=== PATIENT | female | born 1975 | race Caucasian/White ===

== ENCOUNTER 2019-10-03 09:49 | Inpatient (IN) | payer OTHER ==
[~2019-10-03 09:49] MED LIST: Bupivacaine 0.5% 50 ML MDV ONE; Lidocaine 1% with EPINEPHrine 1:100,000 50 ML MDV ONE; Meropenem 500 MG SDV ONE
[2019-10-03] MEDS ORDERED: Succinylcholine 200 MG/10 ML MDV ONE (10:12)
[2019-10-03] MEDS ORDERED: Ondansetron 4 MG/2 ML SDV ONE (10:12)
[2019-10-03] MEDS ORDERED: Glycopyrrolate 0.2 MG/ML 5 ML MDV ONE (10:12)
[2019-10-03] MEDS ORDERED: Rocuronium 50 MG/5 ML Vial ONE (10:12)
[2019-10-03] MEDS ORDERED: Propofol 200 MG/20 ML SDV ONE (10:12)
[2019-10-03] MEDS ORDERED: Neostigmine Methylsulfate 1 MG/ML 5 ML Syringe ONE (10:12)
[2019-10-03] MEDS ORDERED: Dexamethasone 4 MG/ML SDV ONE (10:12)
[2019-10-03] MEDS ORDERED: fentaNYL 250 MCG/5 ML SDV ONE ×2 (10:14→12:12)
[2019-10-03 10:27] LABS: HEMOGLOBIN A1C 5.7 % (4.5-6.2)
[2019-10-03] MEDS ORDERED: Acetaminophen 500 MG Tab PO ONE (10:30)
[2019-10-03] MEDS ORDERED: Celecoxib 200 MG Cap PO ONE (10:30)
[2019-10-03] MEDS ORDERED: Scopolamine 1.5 MG Transdermal Patch TOP SCH (10:30)
[2019-10-03] MEDS ORDERED: Gabapentin 300 MG Cap PO ONE (10:30)
[2019-10-03] MEDS ORDERED: Dextrose 5%-Lactated Ringers 1,000 ML IV SCH ×2 (11:15→15:15)
[2019-10-03] MEDS ORDERED: cefOXitin 2 GM in Sodium Chloride 0.9% 50 ML IV ONE (11:45)
[2019-10-03] MEDS ORDERED: Ropivacaine 34 ML, dexAMETHasone 8 MG, EPINEPHrine 0.4 MG, Sodium Chloride 0.9% 43.6 ML NERVRT SCH ×4 (12:00)
[2019-10-03] MEDS ORDERED: Magnesium Sulfate 2 GM in Sodium Chloride 0.9% 100 ML IV SCH (12:00)
[2019-10-03] MEDS ORDERED: MAGNESIUM SULFATE IV ONE (12:00)
[2019-10-03] MEDS ORDERED: Ketamine 500 MG/5 ML MDV IV SCH (12:00)
[2019-10-03] MEDS ORDERED: SODIUM CHLORIDE 0.9% IV ONE (12:00)
[2019-10-03] MEDS ORDERED: Ketamine 50 MG in Sodium Chloride 0.9% 49.5 ML IV SCH (12:00)
[2019-10-03] MEDS ORDERED: fentaNYL 100 MCG/2 ML SDV IVPUSH ONE (13:37)
[2019-10-03] MEDS ORDERED: hydrOXYzine HCL 100 MG/2 ML SDV IM ONE (13:38)
[2019-10-03] MEDS ORDERED: Acetaminophen 500 MG Tab PO PRN (15:05)
[2019-10-03] MEDS ORDERED: Insulin Lispro 100 Unit/ML 3 ML KwikPen SUBCUT PRN (15:05)
[2019-10-03] MEDS ORDERED: diphenhydrAMINE 50 MG/ML SDV IVPUSH PRN (15:05)
[2019-10-03] MEDS ORDERED: Labetalol 20 MG/4 ML Syringe IVPUSH PRN (15:05)
[2019-10-03] MEDS ORDERED: HYDROmorphone 1 MG/ML Syringe IV PRN (15:05)
[2019-10-03] MEDS ORDERED: Glucagon,Human Recombinant 1 MG Vial IM PRN (15:05)
[2019-10-03] MEDS ORDERED: Calcium Gluconate 10% 1 GM/10 ML SDV IVPUSH PRN (15:05)
[2019-10-03] MEDS ORDERED: Ondansetron 4 MG/2 ML SDV IVPUSH PRN (15:05)
[2019-10-03] MEDS ORDERED: Metoclopramide 10 MG/2 ML SDV IVPUSH PRN (15:05)
[2019-10-03] MEDS ORDERED: Cyclobenzaprine 10 MG Tab PO PRN (15:05)
[2019-10-03] MEDS ORDERED: 50% Dextrose in Water 50 ML Syringe IVPUSH PRN (15:05)
[2019-10-03] MEDS ORDERED: Lactated Ringers 1,000 ML IV SCH (15:15)
[2019-10-03] MEDS ORDERED: MVI, Adult with Vitamin K 10 ML, Thiamine 200 MG, Chromium/Copper/Mang/Selen/Zn 1 ML in... IV SCH ×4 (16:00)
[2019-10-03] MEDS: Venlafaxine 75 MG Tab PO SCH (16:46)
[2019-10-03] MEDS: oxyCODONE 5 MG Tab PO PRN (16:53)
[2019-10-03] MEDS ORDERED: Venlafaxine 75 MG Cap.ER PO SCH (17:00)
[2019-10-03] MEDS ORDERED: Pantoprazole 40 MG Vial IVPUSH SCH (18:00)
[2019-10-03] MEDS: cefOXitin 2 GM in Sodium Chloride 0.9% 50 ML IV SCH (18:14)
[2019-10-03] MEDS: Acetaminophen 500 MG Tab PO SCH (18:14)
[2019-10-03] MEDS: HYDROmorphone 0.5 MG/0.5 ML Syringe IVPUSH PRN ×2 (20:26→22:51)
[2019-10-03] MEDS: Heparin Sodium 5,000 Units/ML Vial SUBCUT SCH (20:30)
[2019-10-03] MEDS: Baclofen 10 MG Tab PO SCH (20:33)
[2019-10-03] MEDS: Gabapentin 300 MG Cap PO SCH (20:33)
[2019-10-03] MEDS: Metoprolol Tartrate 25 MG Tab PO SCH (20:35)
[2019-10-03] MEDS ORDERED: traZODone 50 MG Tab PO SCH (21:00)
[2019-10-03] MEDS: hydrOXYzine HCL 100 MG/2 ML SDV IM PRN (21:28)
[2019-10-04] MEDS: cefOXitin 2 GM in Sodium Chloride 0.9% 50 ML IV SCH ×2 (00:55→05:42)
[2019-10-04] MEDS: oxyCODONE 5 MG Tab PO PRN (01:01)
[2019-10-04] MEDS: Acetaminophen 500 MG Tab PO SCH ×2 (01:02→09:56)
[2019-10-04] MEDS ORDERED: Iopamidol 612 MG/ML 50 ML SDV PO STA (03:14)
[2019-10-04] MEDS: HYDROmorphone 0.5 MG/0.5 ML Syringe IVPUSH PRN (03:25)
[2019-10-04] MEDS: hydrOXYzine HCL 100 MG/2 ML SDV IM PRN (04:30)
[2019-10-04] MEDS ORDERED: Insulin Lispro 100 Unit/ML 3 ML KwikPen SUBCUT PRN ×2 (07:18→07:22)
[2019-10-04] MEDS ORDERED: Ondansetron 4 MG Tab.DIS PO PRN (07:18)
[2019-10-04] MEDS: Venlafaxine 75 MG Tab PO SCH ×2 (07:21→12:45)
[2019-10-04] MEDS: Heparin Sodium 5,000 Units/ML Vial SUBCUT SCH (07:22)
[2019-10-04] MEDS ORDERED: Potassium Chloride Riders 40 MEQ in Premix Bag 1 BAG IV ONE (07:22)
[2019-10-04] MEDS ORDERED: Levothyroxine 88 MCG Tab PO SCH (07:30)
[2019-10-04] MEDS: HYDROmorphone 2 MG Tab PO PRN ×2 (07:56→13:34)
[2019-10-04] MEDS ORDERED: metFORMIN 500 MG Tab PO SCH (08:00)
[2019-10-04] MEDS: Metoprolol Tartrate 25 MG Tab PO SCH (08:07)
[2019-10-04] MEDS: Baclofen 10 MG Tab PO SCH ×2 (08:07→13:36)
[2019-10-04] MEDS: Gabapentin 300 MG Cap PO SCH ×2 (08:08→13:37)
[2019-10-04] MEDS ORDERED: Fluticasone Propionate Nasal Spray 16 GM Bottle NASBOTH SCH (09:00)
[2019-10-04] MEDS ORDERED: Aspirin 325 MG Tab.EC PO SCH (09:00)
[2019-10-04] MEDS ORDERED: Celecoxib 200 MG Cap PO SCH (09:00)
[2019-10-04] MEDS ORDERED: Loratadine 10 MG Tab PO SCH (09:00)
--- NOTE | 2019-10-04 09:10 | CR ---
UGI CLINICAL HISTORY: Status post gastric bypass abdominal pain FINDINGS: Patient swallowed water-soluble contrast. Patient is status post gastrectomy. There is no evidence of extravasation at the gastric remanent. There is no obstruction Impression: No evidence of obstruction or leakage I
--- NOTE | 2019-10-04 09:32 | PN ---
DATE OF SERVICE: 10/04/2019 SUBJECTIVE: Duyen is postoperative day #1. Pain has been controlled. She has been up walking x2. Upper GI was normal. Oral intake 1450. Urine output 1750. REVIEW OF SYSTEMS: Remainder of review of systems negative for any pertinent positives and negatives. OBJECTIVE: GENERAL: Duyen is a pleasant 44-year-old female, alert, orientated. VITAL SIGNS: TPR 97.6, 50, 16, blood pressure 106/62. HEENT: Negative. NECK: Supple. HEART: Regular rate and rhythm. LUNGS: Clear. ABDOMEN: Dressings dry and intact. Abdominal binder is on. EXTREMITIES: Without peripheral edema. ASSESSMENT: Exploratory laparotomy with: 1. Reduction of small bowel volvulus and closure of internal hernia. 2. Small-bowel resection. 3. Separate enterostomy for reestablished Angelica-en-Y small bowel anatomy. 4. Excision of elongated partial nodule base of mesentery. 5. Placement of Interceed mesh. PLAN: 1. Discontinue D5LR IV. 2. Continue lactated Ringer's at 100 mL per hour. 3. Dilaudid 2 to 4 mg every 4 hours p.r.n. pain orally. 4. Step 3 gastric bypass diet. 5. KCl 40 mEq IV 1 time for potassium of 3.5. 6. Order Accu-Cheks and insulin as prescribed. Postoperatively, order was missed. 7. Call Jacky Norris MD, with results of Accu-Cheks. 8. Good pulmonary toilet. 9. We will evaluate p.r.n. or in a.m. Darcy Limon PA-C /[id number]
[2019-10-04] MEDS: Potassium Chloride 20 MEQ, Lidocaine 1% 2 ML in Sodium Chloride 0.9% 100 ML IV SCH ×2 (09:57→12:38)
[2019-10-04] MEDS ORDERED: Pantoprazole 40 MG Delayed-Release Granules 1 Packet PO SCH (16:30)
--- NOTE | 2019-10-05 02:51 | DISCH ---
ADMISSION DIAGNOSES: Partial small bowel obstruction, postprandial diabetes, single-port Angelica-en-Y gastric bypass surgery, unspecified surgical malabsorption, B12 deficiency, vitamin D deficiency, diabetes type 2, chronic pain with chronic narcotic use, essential hypertension, general anxiety disorder, coronary artery disease. DISCHARGE DIAGNOSES: Exploratory laparotomy with: 1. Reduction of small bowel volvulus and closure of internal hernia. 2. Small bowel resection. 3. Separate enterostomy for reestablished Angelica-en-Y small bowel anatomy. 4. Excision of elongated partial nodule of mesentery. 5. Placement of Interceed mesh for partial small bowel obstruction secondary to small bowel volvulus and intussusception at the jejunojejunostomy. Elongated nodule at the base of mesentery 5.2 cm, separate small bowel stricture near the jejunojejunostomy. HISTORY: Duyen is a 44-year-old female with partial small bowel obstruction. After preoperative evaluation and discussion of possible risks and possible complications, she wished to proceed with surgical procedure. HOSPITAL COURSE: Duyen had her surgery on 10/03/2019. She had no operative complications. On postop day 1, her upper GI was normal. Oral intake adequate. Pain was controlled. Activity good. Vital signs were stable and she was able to be discharged to home. PHYSICAL EXAMINATION: GENERAL: Duyen is a 44-year-old female. VITAL SIGNS: Height is 5 feet 5.75 inches, weight is 154 pounds. TPR is 98, 171, 16, blood pressure 142/76. HEENT: Negative. NECK: Supple. HEART: Regular rate and rhythm. LUNGS: Clear. ABDOMEN: Aquacel dressing is on. Abdominal binder is on. EXTREMITIES: Without peripheral edema. DISPOSITION: Discharged to home. CONDITION: Stable and improving. FOLLOWUP: Followup appointment with Darcy Limon PA-C, on 10/16/2019 at 10 a.m. MEDICATIONS: New prescription, Celebrex 200 mg oral b.i.d., #28. She is to resume home medications: 1. Percocet 7.5 mg 1 tablet oral every 4 hours p.r.n. pain. 2. Aspirin 325 mg oral daily. 3. Baclofen 20 mg oral 3 times a day. 4. FiberCon 625 mg oral daily. 5. Amy 180 mg oral twice daily. 6. Flonase 2 sprays in each nostril once daily. 7. Neurontin 600 mg oral 3 times a day. 8. Probiotic 1 tablet daily. 9. Levothyroxine 88 mcg oral before breakfast. 10.Magnesium oxide 400 mg oral daily. 11.Metoprolol 12.5 mg oral every 12 hours. 12.Protonix 40 mg oral twice daily. 13.Chantix 1 tablet oral as directed. 14.Effexor 75 mg 3 times daily. 15.Metformin 1000 mg oral with breakfast. 16.Trazodone 100 mg at bedtime. DIET: Step 3 gastric bypass diet for 2 weeks. Drink 8 to 10 glasses of water a day. ACTIVITY: No lifting greater than 10 pounds for 6 weeks. Walk at least 6 times daily inside your home. Driving: Do not drive for 1 week and while on narcotic pain medication. Shower/bathing: May shower. DISCHARGE INSTRUCTIONS: Notify provider if any fever, increased pain, nausea, vomiting. Keep site clean and dry. Wear abdominal binder for 6 weeks and then p.r.n. Use incentive spirometer 10 times every hour while awake for 1 week.
[2019-10-05] MEDS ORDERED: Cyanocobalamin (Vitamin B12) 1,000 MCG/ML SDV IM ONE (09:00)
--- NOTE | 2019-10-07 13:59 | OR ---
DATE OF PROCEDURE: 10/03/2019 SURGEON: Jacky Norris MD PREOPERATIVE DIAGNOSIS: Partial small bowel obstruction. POSTOPERATIVE DIAGNOSES: 1. Partial small bowel obstruction secondary to small bowel volvulus and intussusception at jejunojejunostomy. 2. Elongated peritoneal nodule at base of mesentery (5.2 cm). 3. Separate small bowel stricture near the origin of the jejunojejunostomy. PROCEDURES PERFORMED: Exploratory laparotomy with: 1. Reduction of small bowel volvulus and closure of internal hernia (83414). 2. Small bowel resection (08438). 3. Separate enteroenterostomy for re-establishment of Angelica-en-Y small bowel anatomy (41127). 4. Excision of elongated peritoneal nodule at base of mesentery (61339). 5. Placement of Interceed mesh to limit recurrent adhesion formation between pelvic and abdominal wall and underlying viscera (49941). ANESTHESIA: General. PRAWN TRAWLER HAND: Darcy Limon PA-C INDICATION FOR PROCEDURE: This is a 44-year-old female presenting with a picture of partial small-bowel obstruction, status post previous Angelica-en-Y gastric bypass. Plan is to proceed with limited laparotomy with reduction of any volvulus that might be identified, lysis of adhesions with some small bowel resection as indicated. Potential risks of the procedure including bleeding, infection, leaks from various GI tract closures, recurrence of problem over time were all reviewed, and the patient wishes to proceed. DETAILS OF PROCEDURE: The patient was taken to the operating room. After general endotracheal anesthesia was induced, a Hernández catheter was inserted, and the abdomen was prepped and draped. A midline incision from the umbilicus roughly a handsbreadth toward the xiphoid was made and carried down through the full-thickness abdominal wall and peritoneal cavity entered. Upon entering the peritoneal cavity, the patient was noted to have a focal small volvulus involving the significant portion of small bowel prolapsing underneath the leaves of the enteroenterostomy. As this was reduced, the enteroenterostomy was noted to be quite dilated consistent with probable recurrent intussusception. There was also a narrowing of the small bowel as it entered the anastomosis at the level of the Angelica limb likely related to longstanding distortion of its configuration related to the volvulus. There was also noted to be an elongated peritoneal nodule at the base of the mesentery extending upward toward the jejunojejunostomy. This measured 5.2 cm and was excised at this point. The decision was made to resect the jejunojejunostomy. Three components were then divided with JUVENAL staplers as was the underlying mesentery where it had been the end of the biliopancreatic limb was anastomosed what had been beginning of the common limb with a side- to-side enteroenterostomy with internal firing of Endo-JUVENAL 60 mm stapler. Common opening was closed transversely with the same stapler and angles anastomosed, and mesenteric defect approximated with some 3-0 Vicryl stitch. The small bowel continuity was then reconstructed with a separate enteroenterostomy roughly 20 cm distal to the original anastomosis. This was continue to the end of the Angelica limb with the same sequence of stephen. In this case, the mesenteric defect was closed with a 2-0 silk stitch to provide some permanency. At that point, no further problems noted. Abdomen irrigated with antibiotic-containing saline solution. Bilateral transversus abdominis plane blocks were placed, and to limit recurrent adhesion formation, Interceed mesh was placed underneath the incision, from there down toward the pelvis, and the midline fascia was then approximated with #2 Vicryl stitch. This area was then anesthetized with 0.5% Marcaine and incision closed with some 3-0 and 4-0 Vicryl stitch deep and stephen for the skin. Dressing was applied. The patient was taken to the recovery room in satisfactory condition. Physician drilling assistant, Darcy Limon, played an essential role in assisting in this case, helping to position the patient, retract structures as needed, as well as suturing and cutting sutures when indicated. Her presence improved patient safety and decreased operative time. Jacky Norris MD /[id number]
== END 2019-10-04 15:00 | disposition home or self-care (01) | DRG 326 ==
LOC: JP.SDSSCHI 09:49 → JP.SDS 09:50 → EDSTATUS 11:45 → JP.MS 13:40
PROVIDERS: ADMIT Surgery; ATTEND Surgery
PROC: 0D160ZA Bypass Stomach to Jejunum, Open Approach (ICD-10-PCS; principal; 2019-10-03)
PROC: 0DS80ZZ Reposition Small Intestine, Open Approach (ICD-10-PCS; 2019-10-03)
PROC: 0DBW0ZZ Excision of Peritoneum, Open Approach (ICD-10-PCS; 2019-10-03)
PROC: 0DB80ZZ Excision of Small Intestine, Open Approach (ICD-10-PCS; 2019-10-03)
PROC: 3E0M05Z Introduction of Adhesion Barrier into Peritoneal Cavity, Open Approach (ICD-10-PCS; 2019-10-03)
DX: K95.89 Other complications of other bariatric procedure (principal); K56.2 Volvulus; K56.1 Intussusception; K94.13 Enterostomy malfunction; Y84.8 Other medical procedures as the cause of abnormal reaction of the patient, or of later complication, without mention of misadventure at the time of the procedure; K66.9 Disorder of peritoneum, unspecified; F41.9 Anxiety disorder, unspecified; I25.10 Atherosclerotic heart disease of native coronary artery without angina pectoris; E11.9 Type 2 diabetes mellitus without complications; F32.9 Major depressive disorder, single episode, unspecified; I10 Essential (primary) hypertension; K21.0 Gastro-esophageal reflux disease with esophagitis; F41.1 Generalized anxiety disorder; K44.9 Diaphragmatic hernia without obstruction or gangrene; E78.5 Hyperlipidemia, unspecified; E03.9 Hypothyroidism, unspecified; Z98.1 Arthrodesis status; E55.9 Vitamin D deficiency, unspecified; Z90.49 Acquired absence of other specified parts of digestive tract; Z98.890 Other specified postprocedural states; Z79.84 Long term (current) use of oral hypoglycemic drugs; Z79.899 Other long term (current) drug therapy; Z79.82 Long term (current) use of aspirin; Z88.0 Allergy status to penicillin; Z88.8 Allergy status to other drugs, medicaments and biological substances
CPT/HCPCS: 36415; 74240; 74240-26; 74246-26; 80053; 81025; 82728; 83036; 83735; 84100; 85027; 88305; 88307; A9270-GY; C9113; J0171; J0330; J0694; J1100; J1170; J1644; J2001; J2020; J2185; J2405; J2704; J2710; J2795; J3010; J3410; J3411; J3475; J3480; J3490; J7050; J7120; J7121; Q9967

== ENCOUNTER 2019-11-22 05:21 | Inpatient (IN) | payer OTHER ==
[2019-11-22] MEDS ORDERED: Celecoxib 200 MG Cap PO ONE (05:30)
[2019-11-22] MEDS ORDERED: Acetaminophen 500 MG Tab PO ONE (05:30)
[2019-11-22] MEDS ORDERED: Gabapentin 300 MG Cap PO ONE (05:30)
[2019-11-22] MEDS ORDERED: ceFAZolin 2 GM in Premix Bag 1 BAG IV ONE (06:00)
[2019-11-22] MEDS ORDERED: Dextrose 5%-Lactated Ringers 1,000 ML IV SCH (06:00)
[2019-11-22] MEDS ORDERED: Bupivacaine 0.5% 50 ML MDV ONE (06:43)
[2019-11-22] MEDS ORDERED: Meropenem 500 MG SDV ONE (06:43)
[2019-11-22] MEDS ORDERED: Lidocaine 1% with EPINEPHrine 1:100,000 50 ML MDV ONE (06:43)
[2019-11-22] MEDS ORDERED: fentaNYL 250 MCG/5 ML SDV ONE ×2 (07:08→08:18)
[2019-11-22] MEDS ORDERED: Propofol 200 MG/20 ML SDV ONE (07:09)
[2019-11-22] MEDS ORDERED: Dexamethasone 4 MG/ML SDV ONE (07:09)
[2019-11-22] MEDS ORDERED: Neostigmine Methylsulfate 1 MG/ML 5 ML Syringe ONE (07:09)
[2019-11-22] MEDS ORDERED: Rocuronium 50 MG/5 ML Vial ONE (07:09)
[2019-11-22] MEDS ORDERED: Glycopyrrolate 0.2 MG/ML 5 ML MDV ONE (07:09)
[2019-11-22] MEDS ORDERED: Ondansetron 4 MG/2 ML SDV ONE (07:09)
[2019-11-22] MEDS ORDERED: Succinylcholine 200 MG/10 ML MDV ONE (07:09)
[2019-11-22] MEDS ORDERED: Naloxone 0.4 MG/ML SDV IVPUSH PRN (07:15)
[2019-11-22] MEDS ORDERED: Naloxone 0.4 MG/ML SDV IV PRN (07:26)
[2019-11-22] MEDS ORDERED: Ketamine 50 MG in Sodium Chloride 0.9% 49.5 ML IV SCH (07:45)
[2019-11-22] MEDS ORDERED: Ketamine 500 MG/5 ML MDV IV SCH (07:45)
[2019-11-22] MEDS ORDERED: Lactated Ringers 1,000 ML ONE (08:32)
[2019-11-22] MEDS: HYDROmorphone/Normal Saline 15 MG/30 ML PCA IV PRN ×2 (08:46→21:47)
[2019-11-22] MEDS ORDERED: Ondansetron 4 MG/2 ML SDV IVPUSH PRN (11:22)
[2019-11-22] MEDS ORDERED: LORazepam 0.5 MG Tab PO PRN (11:26)
[2019-11-22] MEDS: Venlafaxine 75 MG Tab PO SCH ×2 (13:00→21:33)
[2019-11-22] MEDS: Baclofen 10 MG Tab PO SCH ×2 (13:00→21:31)
[2019-11-22] MEDS: Gabapentin 300 MG Cap PO SCH ×2 (13:01→21:31)
[2019-11-22] MEDS: ceFAZolin 2 GM in Premix Bag 1 BAG IV SCH ×2 (15:21→21:38)
[2019-11-22] MEDS: Dextrose 5%-Lactated Ringers 1,000 ML IV SCH (18:01)
[2019-11-22] MEDS: hydrOXYzine HCL 100 MG/2 ML SDV IM PRN (18:41)
[2019-11-22] MEDS: metFORMIN 500 MG Tab PO SCH (21:32)
[2019-11-22] MEDS: Metoprolol Tartrate 25 MG Tab PO SCH (21:34)
[2019-11-22] MEDS: traZODone 50 MG Tab PO SCH (21:34)
[2019-11-22] MEDS: Cyclobenzaprine 10 MG Tab PO PRN (21:56)
[2019-11-23] MEDS: hydrOXYzine HCL 100 MG/2 ML SDV IM PRN ×2 (00:52→21:36)
[2019-11-23] MEDS: Dextrose 5%-Lactated Ringers 1,000 ML IV SCH (04:06)
[2019-11-23] MEDS: ceFAZolin 2 GM in Premix Bag 1 BAG IV SCH ×3 (05:40→21:25)
[2019-11-23] MEDS ORDERED: Dextrose 5%-Lactated Ringers 1,000 ML IV SCH (07:30)
[2019-11-23] MEDS: Pantoprazole 40 MG Tab.CR PO SCH (07:32)
[2019-11-23] MEDS: Levothyroxine 88 MCG Tab PO SCH (07:32)
[2019-11-23] MEDS: Gabapentin 300 MG Cap PO SCH ×3 (08:22→21:24)
[2019-11-23] MEDS: Metoprolol Tartrate 25 MG Tab PO SCH ×2 (08:22→21:24)
[2019-11-23] MEDS: Loratadine 10 MG Tab PO SCH (08:22)
[2019-11-23] MEDS: Baclofen 10 MG Tab PO SCH ×3 (08:22→21:24)
[2019-11-23] MEDS: Venlafaxine 75 MG Tab PO SCH ×3 (08:23→21:24)
[2019-11-23] MEDS: Docusate Sodium 100 MG Cap PO SCH ×2 (08:23→21:23)
[2019-11-23] MEDS: Calcium Polycarbophil 625 MG Tab PO SCH (08:23)
[2019-11-23] MEDS: Aspirin 325 MG Tab.EC PO SCH (08:23)
[2019-11-23] MEDS: Bisacodyl 5 MG Tab PO SCH ×2 (08:23→21:23)
[2019-11-23] MEDS: Fluticasone Propionate Nasal Spray 16 GM Bottle NASBOTH SCH (08:24)
[2019-11-23] MEDS: Cyclobenzaprine 10 MG Tab PO PRN (09:27)
[2019-11-23] MEDS: HYDROmorphone/Normal Saline 15 MG/30 ML PCA IV PRN (17:10)
[2019-11-23] MEDS: metFORMIN 500 MG Tab PO SCH (21:24)
[2019-11-23] MEDS: traZODone 50 MG Tab PO SCH (21:24)
[2019-11-24] MEDS: Pantoprazole 40 MG Tab.CR PO SCH (07:12)
[2019-11-24] MEDS: Levothyroxine 88 MCG Tab PO SCH (07:12)
[2019-11-24] MEDS ORDERED: Sodium Chloride 0.9% 10 ML Syringe FLUSH PRN (07:27)
[2019-11-24] MEDS ORDERED: Magnesium Hydroxide 400 MG/5 ML Susp 30 ML Cup PO PRN (08:13)
[2019-11-24] MEDS ORDERED: Magnesium Hydroxide 400 MG/5 ML Susp 30 ML Cup PO ONE ×2 (08:15→21:00)
[2019-11-24] MEDS: Metoprolol Tartrate 25 MG Tab PO SCH ×2 (09:07→21:17)
[2019-11-24] MEDS: Calcium Polycarbophil 625 MG Tab PO SCH (09:08)
[2019-11-24] MEDS: Docusate Sodium 100 MG Cap PO SCH ×2 (09:08→21:21)
[2019-11-24] MEDS: Gabapentin 300 MG Cap PO SCH ×3 (09:09→21:17)
[2019-11-24] MEDS: Aspirin 325 MG Tab.EC PO SCH (09:09)
[2019-11-24] MEDS: Bisacodyl 5 MG Tab PO SCH ×2 (09:09→21:17)
[2019-11-24] MEDS: Baclofen 10 MG Tab PO SCH ×3 (09:09→21:17)
[2019-11-24] MEDS: Venlafaxine 75 MG Tab PO SCH ×3 (09:09→21:17)
[2019-11-24] MEDS: Loratadine 10 MG Tab PO SCH (09:09)
[2019-11-24] MEDS: Fluticasone Propionate Nasal Spray 16 GM Bottle NASBOTH SCH (09:09)
[2019-11-24] MEDS: Acetaminophen 500 MG Tab PO SCH ×3 (09:10→22:31)
--- NOTE | 2019-11-24 13:54 | PN ---
DATE OF SERVICE: 11/23/2019 The patient has been afebrile with stable vital signs. Urine output has been quite good and we will back down on the IV rate. We will go up to step-4 diet today. We will continue the OUTSIDE SOLAR SALES CONSULTANT as she still has quite a bit of surgical pain. Begin some bowel stimulation. Switch over to oral pain medication tomorrow. Jacky Norris MD /[id number]
--- NOTE | 2019-11-24 13:54 | PN ---
DATE OF SERVICE: 11/24/2019 The patient has been afebrile with stable vital signs. No major problems were noted. We will switch over to oral pain medication. We will give her some additional bowel stimulation today. She will probably be ready for discharge home tomorrow. Jacky Norris MD /[id number]
[2019-11-24] MEDS: metFORMIN 500 MG Tab PO SCH (21:16)
[2019-11-24] MEDS: traZODone 50 MG Tab PO SCH (21:17)
[2019-11-25] MEDS: Acetaminophen 500 MG Tab PO SCH ×2 (05:22→09:20)
[2019-11-25] MEDS: Levothyroxine 88 MCG Tab PO SCH (07:16)
[2019-11-25] MEDS: Pantoprazole 40 MG Tab.CR PO SCH (07:16)
--- NOTE | 2019-11-25 09:06 | DISCH ---
ADMISSION DIAGNOSES: 1. Incisional hernia. 2. Coronary artery disease. 3. Essential hypertension. 4. Diabetes mellitus. 5. Major depression disorder. 6. General anxiety disorder. 7. Spondylosis with myelopathy or radiculopathy. 8. Pure hypercholesterolemia. 9. Chronic continuous use of opioids. 10.Heart murmur. 11.Obstructive sleep apnea of adult. DISCHARGE DIAGNOSIS: Exploratory laparotomy with repair of hernia with mesh and placement of Interceed mesh for incarcerated incisional hernia, incarcerated umbilical hernia, and extensive intraabdominal adhesions. Date of surgery: 11/22/2019. HISTORY: Duyen is a 44-year-old female with incarcerated incisional hernia. After preoperative evaluation and discussion of possible risks and possible complications, she wished to proceed with surgical procedure. HOSPITAL COURSE: Surgery was on 11/22/2019. She had no operative complications. On postoperative day #1, Hernández was discontinued, started on bowel stimulation and a step 4 gastric bypass diet. On postoperative day #2, FRUIT STUFFER was discontinued. Activity remained good. Her pain was controlled. On postoperative day #3, she was able to be discharged to home. PHYSICAL EXAMINATION: GENERAL: Duyen is a 44-year-old female. VITAL SIGNS: Height is 5 feet 7 inches, weight is 148 pounds. TPR at 0017, 96.8; 98; 18; blood pressure 103/66. HEENT: Negative. NECK: Supple. HEART: Regular rate and rhythm. LUNGS: Clear. ABDOMEN: Aquacel dressings on. Pressure dressing is over hernia site. Abdominal binder is on. EXTREMITIES: Without peripheral edema. DISPOSITION: Discharged to home. CONDITION: Stable and improving. FOLLOWUP: Appointment with Darcy Limon PA-C, on 11/29/2019 at 9 a.m. HOME MEDICATIONS: 1. Percocet 7.5/325 1 tablet every 6 hours p.r.n. pain #28. 2. To resume home medication: a. Aspirin 325 mg oral daily. b. Baclofen 20 mg oral 3 times a day. c. FiberCon 625 mg oral daily. d. Amy 180 mg oral daily. e. Flonase 2 sprays in each nostril daily. f. Neurontin 600 mg oral 3 times a day. g. Probiotic 1 tablet oral daily. h. Ativan 0.5 mg q.6 hours p.r.n. anxiety. i. Levothyroxine 88 mcg oral before breakfast. j. Levonorgestrel 1 as directed. k. Magnesium oxide 400 mg oral daily. l. Lopressor 12.5 mg oral every 12 hours. m. Protonix 40 mg oral twice daily. n. Chantix 1 mg oral twice daily. o. Effexor 75 mg oral 3 times a day. p. Metformin 1000 mg at bedtime. q. Trazodone 100 mg at bedtime. DIET: Usual diet as tolerated. Drink 8 to 10 glasses of water a day. ACTIVITY: No lifting over 10 pounds for 6 weeks. Other activity: Walk at least 6 times inside your house. Driving after discharge: Do not drive for 1 week and while on Percocet. Shower/bathing: May shower. DISCHARGE INSTRUCTIONS: Notify provider if any fever, increased pain, swelling, redness, nausea, or vomiting. Wound incision care. Keep site clean and dry. Take off Aquacel dressing on , 11/28/2019. Wear a pressure dressing over former hernia site. Wear abdominal binder for 6 weeks and then as tolerated. Use incentive spirometer 10 times every hour while awake.
[2019-11-25] MEDS: Docusate Sodium 100 MG Cap PO SCH (09:19)
[2019-11-25] MEDS: Loratadine 10 MG Tab PO SCH (09:20)
[2019-11-25] MEDS: Gabapentin 300 MG Cap PO SCH (09:20)
[2019-11-25] MEDS: Fluticasone Propionate Nasal Spray 16 GM Bottle NASBOTH SCH (09:20)
[2019-11-25] MEDS: Calcium Polycarbophil 625 MG Tab PO SCH (09:20)
[2019-11-25] MEDS: Baclofen 10 MG Tab PO SCH (09:20)
[2019-11-25] MEDS: Metoprolol Tartrate 25 MG Tab PO SCH (09:20)
[2019-11-25] MEDS: Venlafaxine 75 MG Tab PO SCH (09:21)
[2019-11-25] MEDS: Bisacodyl 5 MG Tab PO SCH (09:21)
[2019-11-25] MEDS: Aspirin 325 MG Tab.EC PO SCH (09:21)
--- NOTE | 2019-11-27 14:08 | OR ---
DATE OF PROCEDURE: 11/22/2019 SURGEON: Jacky Norris MD PREOPERATIVE DIAGNOSIS: Incisional hernia. POSTOPERATIVE DIAGNOSES: 1. Incarcerated incisional hernia. 2. Incarcerated umbilical hernia. 3. Extensive intraabdominal adhesions. OPERATIVE PROCEDURES: Exploratory laparotomy with, 1. Repair of incarcerated incisional hernia with mesh (33400, 89623). 2. Repair of incarcerated umbilical hernia with mesh (26920). 3. Placement of Interceed mesh to limit recurrent adhesion formation between pelvic and abdominal tirado and underlying viscera (82221). ANESTHESIA: General. MULTIPLE KNIFE EDGE TRIMMER OPERATOR: Darcy Limon PA-C INDICATIONS FOR PROCEDURE: This is a 44-year-old female presenting with a large incisional hernia located in the epigastric area. The plan is to proceed with excision of this and repair with a mesh technique. Because of the size of the fascial defect, an open approach will be used so as to allow an adequate gnosticist of her abdominal wall integrity underlying mesh, i.e., with fascial closure would provide a much better sense of stability in the abdominal wall over time. Potential risks including bleeding, infection, injury to underlying viscera, possibility of the hernia recurring or the mesh becoming infected were all reviewed, and the patient wishes to proceed. DETAILS OF PROCEDURE: The patient was taken to the operating room. After general endotracheal anesthesia was induced, a Hernández catheter was then inserted, and the abdomen was prepped and draped. An elliptical vertically-oriented incision was then made, which would remove some of redundant skin and provide a more adequate closure over the repair. This was done in the midline and carried down through the skin and subcutaneous tissue. At that point, the hernia sac was encountered and dissected free. Some of the overlying skin along with hernia sac were then delivered en bloc along with the area of the umbilical hernia. At this point, a Vent[address] ST hernia patch measuring 19.6 cm x 24.6 cm was selected, at 5 cm intervals around its circumference, 2-0 Vicryl sutures were placed on the polypropylene side of the mesh. Stab wounds were then placed where the sutures would be pulled up. The mesh was soaked in antibiotic-containing saline solution. Then, upper half of the sutures were then placed, and the mesh pulled into position there. To limit recurrent adhesion formation, an Interceed mesh was then placed underneath the mesh and from there back down toward the pelvis, thus displacing those surfaces from the underlying viscera. Remaining sutures were then pulled up. Following that, then the sutures were tied. The fascia was then closed with a running #2 Vicryl stitch. Subcutaneous tissue was then closed with 2 layers of 3-0 and 4-0 Vicryl stitch deep, and skin with stephen. The patient received bilateral transversus abdominis plane blocks prior to closure and also had the incision anesthetized with 0.5% Marcaine mixed with lidocaine. The patient was taken to the recovery room in satisfactory condition. Physician museum assistant, Darcy Limon, played an essential role in assisting in this case, helping to position the patient, retract structures as needed, as well as suturing and cutting sutures when indicated. Her presence improved patient safety and decreased the operative time. Jacky Norris MD /[id number]
== END 2019-11-25 10:20 | disposition home or self-care (01) | DRG 354 ==
LOC: JP.SDS 05:21 → JP.MS 05:21 → EDSTATUS 09:45 → JP.MS 11:18
PROVIDERS: ADMIT Surgery; ATTEND Surgery
PROC: 0WUF0JZ Supplement Abdominal Wall with Synthetic Substitute, Open Approach (ICD-10-PCS; principal; 2019-11-22)
PROC: 0WUF0JZ Supplement Abdominal Wall with Synthetic Substitute, Open Approach (ICD-10-PCS; 2019-11-22)
PROC: 3E0M05Z Introduction of Adhesion Barrier into Peritoneal Cavity, Open Approach (ICD-10-PCS; 2019-11-22)
DX: K43.0 Incisional hernia with obstruction, without gangrene (principal); F33.0 Major depressive disorder, recurrent, mild; K42.0 Umbilical hernia with obstruction, without gangrene; I25.10 Atherosclerotic heart disease of native coronary artery without angina pectoris; E11.9 Type 2 diabetes mellitus without complications; K66.0 Peritoneal adhesions (postprocedural) (postinfection); F41.1 Generalized anxiety disorder; E78.00 Pure hypercholesterolemia, unspecified; R01.1 Cardiac murmur, unspecified; G47.33 Obstructive sleep apnea (adult) (pediatric); J32.9 Chronic sinusitis, unspecified; K59.00 Constipation, unspecified; I10 Essential (primary) hypertension; M47.816 Spondylosis without myelopathy or radiculopathy, lumbar region; I25.83 Coronary atherosclerosis due to lipid rich plaque; E03.9 Hypothyroidism, unspecified; M48.061 Spinal stenosis, lumbar region without neurogenic claudication; E66.9 Obesity, unspecified; E55.9 Vitamin D deficiency, unspecified; Z79.891 Long term (current) use of opiate analgesic; Z79.84 Long term (current) use of oral hypoglycemic drugs; Z79.82 Long term (current) use of aspirin; Z98.84 Bariatric surgery status; Z90.49 Acquired absence of other specified parts of digestive tract; Z98.1 Arthrodesis status
CPT/HCPCS: 36415; 81025; 84443; 88302; 93005; 94762; A9270-GY; C1713; C1781; J0171; J0330; J0690; J1100; J1170; J2020; J2185; J2405; J2704; J2710; J2795; J3010; J3410; J3490; J7050; J7120; J7121